=== PATIENT | female | born 1985 | race Caucasian/White ===

== ENCOUNTER 2023-04-10 11:18 | Observation (INO) | payer SELFPAY ==
[2023-04-10] MEDS ORDERED: SODIUM CHLORIDE 0.9% 500 ML 500 ML IV ONE (12:06)
[2023-04-10] MEDS ORDERED: SODIUM CHLORIDE 0.9% 1,000 ML IV ONE (12:06)
[2023-04-10 12:32] LABS: Basophils % (A) 1 %; Eosinophils # (A) 0.1 k/uL (0-0.7); Eosinophils % (A) 2 %; HCT 49.1 % (34.0-46.0); HGB 16.2 gm/dL (11.4-16.0); Lymphocytes # (A) 1.4 k/uL (1.0-4.8); Lymphocytes % (A) 32 %; MCH 32.6 pg (25.0-35.0); MCHC 33.1 g/dL (31.0-37.0); MCV 98.6 fL (80.0-100.0); Mean Platelet Volume 9.7; Monocytes # (A) 0.3 k/uL (0-1.0); Monocytes % (A) 8 %; Neutrophils # (A) 2.4 k/uL (1.3-7.7); Neutrophils % (A) 56 %; Platelet Count 192 k/uL (150-450); RBC 4.98 m/uL (3.80-5.40); RDW 13.4 % (11.5-15.5); WBC 4.4 k/uL (3.8-10.6)
[2023-04-10 12:39] LABS: ALT 382 U/L (4-34); AST 240 U/L (14-36); African American GFR (CKD) >90 (>60 ml/min/1.73 sqM); Albumin 4.7 g/dL (3.5-5.0); Alkaline Phosphatase 53 U/L (38-126); Anion Gap 14 mmol/L; Blood Urea Nitrogen 8 mg/dL (7-17); Calcium 9.2 mg/dL (8.4-10.2); Carbon Dioxide 26 mmol/L (22-30); Chloride 106 mmol/L (98-107); Glucose 84 mg/dL (74-99); Non-African American GFR(CKD) >90 (>60 ml/min/1.73 sqM); Potassium 4.2 mmol/L (3.5-5.1); Sodium 146 mmol/L (137-145); Total Bilirubin 1.4 mg/dL (0.2-1.3); Total Protein 8.1 g/dL (6.3-8.2)
[2023-04-10 12:53] LABS: Alcohol 314 mg/dL
[2023-04-10 13:08] LABS: Appearance,Urine Clear (Clear); Color,Urine Light Yellow
[2023-04-10] MEDS ORDERED: LORazepam 2 MG/ML INJ IV PRN (13:08)
[2023-04-10] MEDS ORDERED: LORazepam 1 MG TAB PO PRN (13:08)
[2023-04-10] MEDS ORDERED: LORazepam 0.5 MG TAB PO PRN (13:08)
[2023-04-10 13:09] LABS: Bilirubin,Urine Negative (Negative); Blood,Urine Trace (Negative); Glucose,Urine (UA) Negative (Negative); Ketones,Urine Negative (Negative); Leukocyte Esterase,Urine Negative (Negative); Nitrite,Urine Negative (Negative); Protein,Urine Negative (Negative); Urobilinogen,Urine 0.2 mg/dL (<2.0)
[2023-04-10 13:18] LABS: Bacteria,Urine Many /hpf; RBC,Urine 1 /hpf (0-5); Squamous Epithelial Cell,Urine 3 /hpf (0-4); WBC,Urine 2 /hpf (0-5)
[2023-04-10 13:19] LABS: Amphetamine Screen,Urine Not Detected (NotDetected); Barbiturate Screen,Urine Not Detected (NotDetected); Benzodiazepines Screen,Urine Not Detected (NotDetected); Cocaine Screen,Urine Not Detected (NotDetected); Methadone Screen, Urine Not Detected (NotDetected); Opiate Screen,Urine Not Detected (NotDetected); Oxycodone Screen, Urine Not Detected (NotDetected); Phencyclidine Screen,Urine Not Detected (NotDetected); Tricyclic Antidepressant,Urine Not Detected (NotDetected); Urn Cannabinoid Scrn Not Detected (NotDetected)
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
[2023-04-10] MEDS ORDERED: NALOXONE 0.4 MG/ML 1 ML VIAL IV PRN (13:26)
[2023-04-10] MEDS ORDERED: ONDANSETRON 4 MG/2 ML VIAL IVP PRN (13:26)
[2023-04-10] MEDS: LORazepam 1 MG TAB PO PRN (14:18)
[2023-04-10] MEDS: SODIUM CHLORIDE 0.9% 1,000 ML IV SCH (15:30)
--- NOTE | 2023-04-10 16:19 | P.HPIM ---
History of Present Illness This is a pleasant 37 years old female with past medical history of depression. Patient presents because of suicidal ideation, patient called Hotline for suicidal thoughts and attempts. On the way to the hospital she try to drop from the EMS vehicle. Patient states that she feels very depressed and she was not compliant with her medication, she called Hotline because she did not want to live anymore and actually should try to take her life by/in her left wrist and there is superficial abrasion several of them on her left wrist. She denies any specific symptoms of chest pain dyspnea no abdominal pain no right upper quadrant tenderness, no nausea vomiting or diarrhea. No urinary complaints. No headache weakness or numbness. Smoking or illicit drugs. She drinks 1 pint of liquor every day. Including today. Patient is hemodynamically stable Labs reviewed showing unremarkable CBC, BMP except for mild increased sodium 146 Liver enzymes elevated with AST 40, ALT 382 and total bilirubin 1.4. The emergency room patient was petitioned by her mother Review of Systems Review of systems CONSTITUTIONAL: No fever, no malaise, no fatigue. HEENT: No recent visual problems or hearing problems. Denied any sore throat. CARDIOVASCULAR: No orthopnea, PND, no palpitations, no syncope. PULMONARY: No shortness of breath, no cough, no hemoptysis. GASTROINTESTINAL: No diarrhea, no nausea, no vomiting, no abdominal pain. Normoactive bowel sounds. NEUROLOGICAL: No headaches, no weakness, no numbness. HEMATOLOGICAL: Denies any bleeding or petechiae. GENITOURINARY: Denies any burning micturition, frequency, or urgency. MUSCULOSKELETAL/RHEUMATOLOGICAL: Denies any joint pain, swelling, or any muscle pain. ENDOCRINE: Denies any polyuria or polydipsia. Past Medical History History of Any Multi-Drug Resistant Organisms: None Reported Past Psychological History: Anxiety, Depression Smoking Status: Former smoker Past Alcohol Use History: Daily, Heavy Past Drug Use History: None Reported Medications and Allergies Home Medications Medication Instructions Recorded Confirmed Type No Known Home Medications 04/10/23 04/10/23 History Allergies Allergy/AdvReac Type Severity Reaction Status Date / Time No Known Allergies Allergy Verified 04/10/23 15:05 Physical Exam Vitals: Vital Signs Temp Pulse Resp BP Pulse Ox 04/10/23 12:28 98.7 F 79 16 131/84 99 Intake and Output 04/09/23 04/10/2323 22:59 06:59 14:59 Other: Weight 75.296 kg GENERAL: The patient is alert and oriented x3, not in any acute distress. Well developed, well nourished. HEENT: Pupils are round and equally reacting to light. EOMI. No scleral icterus. No conjunctival pallor. Normocephalic, atraumatic. No pharyngeal erythema. No thyromegaly. CARDIOVASCULAR: S1 and S2 present. No murmurs, rubs, or gallops. PULMONARY: Chest is clear to auscultation, no wheezing , no crackles. ABDOMEN: Soft, nontender, nondistended, normoactive bowel sounds. No palpable organomegaly. MUSCULOSKELETAL: No joint swelling or deformity. -EXTREMITIES: No cyanosis, clubbing, or pedal edema. Superficial abrasion on her left wrist NEUROLOGICAL: Gross neurological examination did not reveal any focal deficits. SKIN: No rashes. no petechiae. Results CBC & Chem 7: 04/10/23 12:19 04/10/23 12:19 Labs: Abnormal Lab Results - Last 24 Hours (Table) 04/10/23 04/10/23 04/10/23 Range/Units 11:50 12:19 12:19 Hgb 16.2 H (11.4-16.0) gm/dL Hct 49.1 H (34.0-46.0) % Sodium 146 H (137-145) mmol/L Total Bilirubin 1.4 H (0.2-1.3) mg/dL AST 240 H (14-36) U/L ALT 382 H (4-34) U/L Urine Blood Trace H (Negative) Urine Bacteria Many H (None) /hpf Serum Alcohol 314 H* mg/dL Assessment and Plan Assessment: Severe depression with suicidal ideation and attempts Alcohol intoxication at-risk of alcohol withdrawal Transaminitis with mild increased bilirubin most likely secondary to alcohol effect Plan: Continue with CIWA protocol Suicidal precautions including sitter at bedside Psychiatry team consult Continue with gentle hydration Cert was written and placed in her paper chart Labs and medication were reviewed.. Continue same treatment. Continue with symptomatic treatment. Resume home medication. Monitor labs and vitals. DVT and GI prophylaxis. Further recommendations as per clinical course of the patient DVT prophylaxis: Subcutaneous heparin GI Prophylaxis: Pepcid Prognosis is guarded
[2023-04-10] MEDS: FAMOTIDINE 20 MG/2 ML VIAL IV SCH (21:39)
[2023-04-10] MEDS: HEPARIN SODIUM,PORCINE 5,000 UNIT/ML 1 ML VIAL SQ SCH (21:40)
[2023-04-11] MEDS: SODIUM CHLORIDE 0.9% 1,000 ML IV SCH ×2 (03:58→16:27)
[2023-04-11] MEDS: LORazepam 1 MG TAB PO PRN ×2 (07:56→17:30)
[2023-04-11] MEDS: HEPARIN SODIUM,PORCINE 5,000 UNIT/ML 1 ML VIAL SQ SCH ×2 (08:03→19:51)
[2023-04-11] MEDS: THIAMINE 100 MG TAB PO SCH (08:03)
[2023-04-11] MEDS: FAMOTIDINE 20 MG/2 ML VIAL IV SCH ×2 (08:03→19:50)
--- NOTE | 2023-04-11 11:46 | P.DS ---
Providers Date of admission: 04/10/23 13:18 Attending physician: Jv Argueta MD Consults: 04/10/23 13:26 Consult Physician Routine Consulting Provider: Dariel Mackenzie Consult Reason/Comments: Suicidal ideation, alcohol abuse, depression Do you want consulting provider notified?: Yes Primary care physician: Stated None Hospital Course: diagnoses: Severe depression with suicidal ideation and attempts Alcohol intoxication at-risk of alcohol withdrawal Transaminitis with mild increased bilirubin most likely secondary to alcohol effect Small superficial wound of the left wrist, no infection and healing hospital course: This is a pleasant 37 years old female with past medical history of depression. Patient presents because of suicidal ideation, patient called Hotline for suicidal thoughts and attempts. On the way to the hospital she try to drop from the EMS vehicle. Patient states that she feels very depressed and she was not compliant with her medication, she called Hotline because she did not want to live anymore and actually should try to take her life by/in her left wrist and there is superficial abrasion several of them on her left wrist. Liver enzymes elevated with AST 40, ALT 382 and total bilirubin 1.4. The emergency room patient was petitioned by her mother and cert is signed and placed in the paper chart Patient has been monitored for 24 hours, no signs symptoms of withdrawal. Today she is fully awake alert, calm. Denies any chest pain or dyspnea. No abdominal pain or change in bowel habits, no diarrhea vomiting. She tolerates diet. No urinary complaints. No headache dizziness weakness or numbness. Patient also feels she is ready to go to the psych unit. We going to repeat liver enzymes please keep monitoring Other that patient is medically stable Problems and management plan were discussed with the patient and he verbalized understanding and acceptance Patient was found stable and can be discharged home in guarded prognosis however he needs follow-up as an outpatient. Patient was instructed to follow up with PCP within one week and patient agrees. Patient states that she does not have insurance still April 2023 so information for [facility] for her Physical exam Gen: patient is a AAOx3, no distress CVS: S1-S2, RRR, no murmur Lungs: B/L CTA, no wheezing Abdomen: soft, no distention, no tenderness, positive bowel sounds Extremity: no leg edema or induration Time spent more than 35 minutes Patient Condition at Discharge: Fair Plan - Discharge Summary Discharge Rx Participant: Yes New Discharge Prescriptions: No Action No Known Home Medications Discharge Medication List No Known Home Medications 04/10/23 [History] Follow up Appointment(s)/Referral(s): None,Stated [Primary Care Provider] - 1-2 days [facility] [NON-STAFF] - 1 Week Discharge Disposition: TRANSFER TO PSYCH HOSP/UNIT
[2023-04-11 12:30] LABS: Albumin 3.8 g/dL (3.5-5.0); Albumin/Globulin Ratio 1.4; Bilirubin,Unconjugated 2.2 mg/dL (0.0-1.1); Globulin 2.7 g/dL; Total Bilirubin 2.4 mg/dL (0.2-1.3); Total Protein 6.5 g/dL (6.3-8.2)
[2023-04-11 18:36] VITALS: RESP 19
[2023-04-12] MEDS: LORazepam 1 MG TAB PO PRN ×3 (01:03→13:20)
[2023-04-12] MEDS: SODIUM CHLORIDE 0.9% 1,000 ML IV SCH (05:02)
[2023-04-12] MEDS: THIAMINE 100 MG TAB PO SCH (07:44)
[2023-04-12] MEDS: HEPARIN SODIUM,PORCINE 5,000 UNIT/ML 1 ML VIAL SQ SCH (07:44)
[2023-04-12] MEDS: FAMOTIDINE 20 MG/2 ML VIAL IV SCH (07:44)
[2023-04-12 13:27] VITALS: BP 100/64; PULSE 80; TEMP 98.5
--- NOTE | 2023-04-12 15:51 | P.DS ---
Providers Date of admission: 04/10/23 13:18 Expected date of discharge: 04/12/23 Attending physician: Jv Argueta MD Consults: 04/10/23 13:26 Consult Physician Routine Consulting Provider: Dariel Mackenzie Consult Reason/Comments: Suicidal ideation, alcohol abuse, depression Do you want consulting provider notified?: Yes Primary care physician: Stated None Hospital Course: Final diagnoses Severe depression with suicidal ideation and attempts Alcohol intoxication at-risk of alcohol withdrawal maintained on CIWA protocol Transaminitis with mild increased bilirubin most likely secondary to alcohol effect Small superficial wound of the left wrist, no infection and healing History of anxiety with depression Former smoker Daily alcohol use of at least 1-2 times daily of vodka GI prophylaxis Full code hospital course: This is a pleasant 37 years old female with past medical history of depression. Patient presents because of suicidal ideation, patient called Hotline for suicidal thoughts and attempts. On the way to the hospital she try to drop from the EMS vehicle. Patient states that she feels very depressed and she was not compliant with her medication, she called Hotline because she did not want to live anymore and actually should try to take her life by/in her left wrist and there is superficial abrasion several of them on her left wrist. Liver enzymes elevated with AST 40, ALT 382 and total bilirubin 1.4. The emergency room patient was petitioned by her mother and cert is signed and placed in the paper chart Patient has been monitored for 24 hours, no signs symptoms of withdrawal. Today she is fully awake alert, calm. Denies any chest pain or dyspnea. No abdominal pain or change in bowel habits, no diarrhea vomiting. She tolerates diet. No urinary complaints. No headache dizziness weakness or numbness. Patient also feels she is ready to go to the psych unit. Patient will be going to [address] once there is about available. Physical exam: Gen: patient is a AAOx3, no distress, anxious CVS: S1-S2, RRR, no murmur Lungs: B/L CTA, no wheezing Abdomen: soft, no distention, no tenderness, positive bowel sounds Extremity: no leg edema or induration The impression and plan of care has been dictated by Yuliet Garcia, Nurse Practitioner as directed. Dr. Mario MD I have performed a history and examination and MDM of this patient, discussed the same with the dictator, and agree with the dictator's assessment and plan as written ,documented as a scribe. Based on total visit time, I have performed more than 50% of the visit. Patient Condition at Discharge: Fair Plan - Discharge Summary Discharge Rx Participant: Yes New Discharge Prescriptions: New LORazepam [Ativan] 0.5 mg PO Q4HR PRN tab PRN Reason: Ciwa 4 To 5 LORazepam [Ativan] 2 mg PO Q2HR PRN tab PRN Reason: Ciwa 10 or greater LORazepam [Ativan] 2 mg PO Q3HR PRN tab PRN Reason: Ciwa 8 To 9 Thiamine [Vitamin B-1] 100 mg PO DAILY tab LORazepam [Ativan] 1 mg PO Q4HR PRN tab PRN Reason: Ciwa 6 To 7 Discharge Medication List LORazepam [Ativan] 0.5 mg PO Q4HR PRN tab 04/11/23 [Rx] LORazepam [Ativan] 1 mg PO Q4HR PRN tab 04/11/23 [Rx] LORazepam [Ativan] 2 mg PO Q2HR PRN tab 04/11/23 [Rx] LORazepam [Ativan] 2 mg PO Q3HR PRN tab 04/11/23 [Rx] Thiamine [Vitamin B-1] 100 mg PO DAILY tab 04/11/23 [Rx] Follow up Appointment(s)/Referral(s): None,Stated [Primary Care Provider] - 1-2 days [facility] [[facility] - 1 Week Activity/Diet/Wound Care/Special Instructions: discharge pt to community hospital (psych unit) Patient is medically stable to go to 3 . Discharge Disposition: TRANSFER TO PSYCH HOSP/UNIT
--- NOTE | 2023-04-12 16:04 | P.CN ---
Psychiatric Consult - . 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 REASON FOR REFERRAL: Psychiatry was consulted for suicidal ideations, depression, alcohol abuse HISTORY OF PRESENT ILLNESS: The patient presented to the hospital initially on 04/10 complaining of suicidal ideation depression alcohol intoxication. Patient reported that she was drinking heavily prior to coming to hospital. She apparently cut her left wrist, she has a history of cutting as well. Blood alcohol level was 314 on admission. LFTs were significantly elevated however mildly to hospitalization. Patient was petitioned by her mother. Patient was seen today at the bedside and agreeable to sba underwriter. Patient claims that she was off her medications for several months. She states that she moved back to [place] from [place] with her family a couple of months ago and states that she has become more "emotional". She states that it was her and her 's anniversary recently and states that "my didn't come home" and states that she believes that she may have been cheating on her. Claims that she started drinking fairly heavily for the past few days. Claims that she went into a "manic episode". She states that she has been having significant marital problems, states that her is possibly leaving her. She was fairly tearful and endorsing depression and anxiety. States that her sleep has been very poor lately. Denying any current alcohol withdrawal symptoms. States that she called the suicide hotline and states that her mother and the police showed up at her door to bring her to the hospital. At this time patient denies any current suicidal or homical ideations, intent or plan. Patient denies any audito ry, visual hallucinations and denies any paranoia or delusions. Patients admits to using alcohol, unknown amount daily. States that she's been struggling with alcohol use for several years now and has been on and off. States that she went to rehab once in [place]. Claims that she takes little bites of irritable at nighttime to help her with sleep. States that she does smoke cigarettes. PAST PSYCHIATRIC HISTORY: Patient has a a history of bipolar disorder. She states that she was previously on lithium, BuSpar and also vrayklar however has not been compliant with these medications for the past few months. Patient denies any previous psychiatric hospitalizations. She claims that she does not have a psychiatrist in [place] however was following up with a psychiatrist in [place] before she moved. Claims that she overdosed on pills as a suicide attempt about 4 years ago. History of Any Multi-Drug Resistant Organisms: None Reported Past Psychological History: Anxiety, Depression Smoking Status: Former smoker Past Alcohol Use History: Daily, Heavy Past Drug Use History: None Reported ALLERGIES: as per EMR. CHEMICAL DEPENDENCY HISTORY: as per HPI. FAMILY PSYCHIATRIC/SUBSTANCE USE HISTORY: Claims that her biological mother abused substances. SOCIAL HISTORY: Patient was born and raised in [place] and also in [place]. Claims that she completed high school and a bachelor's degree. She states that she was arrested a couple of years ago for domestic violence and also resisting arrest. 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 MENTAL STATUS EXAM: General Appearance: Patient appears to be tearful stated age is alert, attempts to be cooperative. Patient appears to have fair hygiene and grooming wearing hospital gown with poor eye contact. Behavior: Patient is calmly lying in bed without any agitated behavior. Soft tone Speech: Patient's speech is fluent and nonpressured. Hesitant Mood/Affect: Patient reports their mood is "depressed and anxiety", affect is congruent and tearful Suicidality/Homicidality: Patient denies having any suicidal or homicidal ideation intent or plan. Perceptions: Patient denies any visual hallucinations and denies any auditory hallucinations Though content/process: There is no evidence of any delusional thought content and thought process is linear and goal-directed. Evasive. Memory and concentration: AOX3, grossly intact for the purposes of this session. Can spell "WORLD" backwards Judgment and insight: poor IMPRESSIONS: Bipolar disorder, current episode depressed Alcohol use disorder Nicotine dependence Marital problems PLAN: -At this time patient DOES meet criteria for inpatient psychiatric admission. -Would recommend the following medication changes/additions: We'll hold off on mood stabilizing medications and antidepressants until patient is transferred to the mental health unit. Will start Librium 20 mg 3 times a day scheduled for alcohol withdrawal and plan to taper down. -CIWA protocol with PRN Ativan for alcohol withdrawal. Continue to monitor vital signs. -Continue 1:1 sitter for safety until patient is safely admitted to the mental health unit -Cannot leave AMA at this time. Patient will need a petition and certification if attempting to leave AMA. -Comb Tender spoke with patient about substance abuse and the harmful effects on medical and mental health, patient verbally understood and agreed. -When medically stable, patient is eligible for transfer to a psych bed when available. -Communicated plan to patient's nurse -Psychiatry will sign off at this time -Please contact with any questions. 04/12/23 15:58
[2023-04-12] MEDS ORDERED: LORazepam 1 MG TAB PO PRN (16:05)
[2023-04-12] MEDS ORDERED: traZODone HCL 50 MG TAB PO PRN (16:06)
== END 2023-04-12 18:35 ==
LOC: EC 11:18 → 4SSUR 13:18
PROVIDERS: ADMIT Internal Medicine; ATTEND Internal Medicine
DX: R45.851 Suicidal ideations (principal); F10.229 Alcohol dependence with intoxication, unspecified; R74.01 Elevation of levels of liver transaminase levels; F31.30 Bipolar disorder, current episode depressed, mild or moderate severity, unspecified; S60.812A Abrasion of left wrist, initial encounter; X78.9XXA Intentional self-harm by unspecified sharp object, initial encounter; F41.9 Anxiety disorder, unspecified; F17.210 Nicotine dependence, cigarettes, uncomplicated; Y90.8 Blood alcohol level of 240 mg/100 ml or more; Z20.822 Contact with and (suspected) exposure to COVID-19; Z63.0 Problems in relationship with spouse or partner; Z91.51 Personal history of suicidal behavior
CPT/HCPCS: 96372 ×2; 82075; 99285; 36415; 80053; 80076; 85025; 81001; 84703; 80306; 80320; 87635; G0378 ×3; J1644 ×2

== ENCOUNTER 2023-04-12 17:27 | Inpatient (IN) | payer OTHER ==
[2023-04-12] MEDS ORDERED: LORazepam 1 MG TAB PO PRN (17:53)
[2023-04-12] MEDS ORDERED: MAGNESIUM HYDROXIDE 2,400 MG/30 ML CUP PO PRN (17:53)
[2023-04-12] MEDS ORDERED: OLANZapine 5 MG TAB PO PRN (18:00)
[2023-04-12] MEDS ORDERED: OLANZapine 10 MG VIAL IM PRN (18:02)
[2023-04-12] MEDS: traZODone HCL 50 MG TAB PO PRN (20:39)
[2023-04-13] MEDS: NICOTINE 14MG/24HR PATCH TRANSDERM SCH (08:13)
[2023-04-13] MEDS: THIAMINE 100 MG TAB PO SCH (08:13)
[2023-04-13] MEDS ORDERED: THIAMINE 100 MG TAB PO SCH (09:00)
[2023-04-13] MEDS ORDERED: INFLUENZA VACC (6 MOS-64 YRS) 60 MCG/0.5 ML SYRINGE IM ONE (10:00)
[2023-04-13] MEDS ORDERED: PNEUMOCOCCAL VACC-PREVNAR-20 0.5 ML SYR IM ONE (10:00)
--- NOTE | 2023-04-13 11:58 | P.HP ---
Psychiatric H&P - . H&P Date: 04/13/23 History & Physical: Allergies Allergy/AdvReac Type Severity Reaction Status Date / Time No Known Allergies Allergy Verified 04/12/23 17:42 Vital Signs Temp 98.2 F 04/13/23 07:10 Pulse 72 04/13/23 07:10 Resp 16 04/13/23 07:10 BP 118/58 04/13/23 07:10 Pulse Ox 98 04/12/23 18:44 FiO2 Intake & Output 04/12/23 04/13/23 04/13/23 18:59 06:59 18:59 Weight 75.29 kg Laboratory Last Values Estimated Ave Glu mg/dL 114 mg/dL 04/13/23 06:29 Hemoglobin A1c 5.6 % (<=6.0) 04/13/23 06:29 TSH 2.330 mIU/L (0.465-4.680) 04/13/23 06:29 04/13/23 08:53 HISTORY OF PRESENT ILLNESS: The patient presented to the hospital initially on 04/10 complaining of suicidal ideation depression alcohol intoxication. Patient reported that she was drinking heavily prior to coming to hospital. She apparently cut her left wrist, she has a history of cutting as well. Blood alcohol level was 314 on admission. LFTs were significantly elevated however mildly to hospitalization. Patient was petitioned by her mother. Patient was seen today at the bedside and agreeable to health science writer. Patient claims that she was off her medications for several months. She states that she moved back to [place] from [place] with her family a couple of months ago and states that she has become more "emotional". She states that it was her and her 's anniversary recently and states that "my didn't come home" and states that she believes that she may have been cheating on her. Claims that she started drinking fairly heavily for the past few days. Claims that she went into a "manic episode". She states that she has been having significant marital problems, states that her is possibly leaving her. She was fairly tearful and endorsing depression and anxiety. States that her sleep has been very poor lately. Denying any current alcohol withdrawal symptoms. States that she called the suicide hotline and states that her mother and the police showed up at her door to bring her to the hospital. At this time patient denies any current suicidal or homical ideations, intent or plan. Patient denies any auditory, visual hallucinations and denies any paranoia or delusions. Patients admits to using alcohol, unknown amount daily. States that she's been struggling with alcohol use for several years now and has been on and off. States that she went to rehab once in [place]. Claims that she takes little bites of an edible at nighttime to help her with sleep. States that she does smoke cigarettes. According to petition filed by her mother "Dennise made statements of suicide, stated she has 30 different ways to kill herself. Cut herself with a knife on wrist, drinking heavily, found bloody knife in her bed. No sleep in 2 days, hasn't changed clothes/showered. Dennise stated she is hopeless, no reason to live. Marriage is dissolving, and children staying with 's parents. History of overdose and hospitalization. Patient transferred from medical unit to [facility] last night. Upon today's interview, Patient states her sleep last night was pretty good, she was restless, however, was able to fall asleep with the help of trazadone. She states her mood and anxiety are not well, and realizes she needs to be put back on her meds. Patient states her appetite is poor, but she is trying to eat. she was fairly tearful when speaking about her condition and hospitalization. states she misses her family. Counseled patient on different medication options that will help her, patient agreeable to take medication. Patient agreeable to sign in voluntary and agrees with her need for treatment. PAST PSYCHIATRIC HISTORY: Patient has a a history of bipolar disorder. She states that she was previously on lithium, BuSpar and also vraylar however has not been compliant with these medications for the past few months. Patient denies any previous psychiatric hospitalizations. She claims that she does not have a psychiatrist in [place] however was following up with a psychiatrist in [place] before she moved. Claims that she overdosed on pills as a suicide attempt about 4 years ago. History of Any Multi-Drug Resistant Organisms: None Reported Past Psychological History: Anxiety, Depression Smoking Status: Former smoker Past Alcohol Use History: Daily, Heavy Past Drug Use History: None Reported ALLERGIES: as per EMR. CHEMICAL DEPENDENCY HISTORY: as per HPI. FAMILY PSYCHIATRIC/SUBSTANCE USE HISTORY: Claims that her biological mother abused substances. SOCIAL HISTORY: Patient was born and raised in [place] and also in [place]. Claims that she completed high school and a bachelor's degree. She states that she was arrested a couple of years ago for domestic violence and also resisting arrest. 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 MENTAL STATUS EXAM: General Appearance: Patient appears to be tearful stated age is alert, attempts to be cooperative. Patient appears to have fair hygiene and grooming wearing street clothes with improving eye contact. Behavior: Patient is calmly sitting in chair without any agitated behavior. Soft tone, tearful Speech: Patient's speech is fluent and nonpressured. Hesitant Mood/Affect: Patient reports their mood is "depressed and anxiety", affect is congruent Suicidality/Homicidality: Patient denies having any suicidal or homicidal ideation intent or plan. Perceptions: Patient denies any visual hallucinations and denies any auditory hallucinations Though content/process: There is no evidence of any delusional thought content and thought process is linear and goal-directed. Memory and concentration: AOX3, grossly intact for the purposes of this session. Can spell "WORLD" backwards Judgment and insight: poor, mildly improving STRENGTHS/WEAKNESSES: strength is that patient is resilient. Weakness is that patient has poor judgment and is impulsive INTELLECT: average IMPRESSIONS: Bipolar disorder, current episode depressed Alcohol use disorder Nicotine dependence Marital problems PLAN: -Patient is admitted under voluntary status to MHU for stabilization of psychiatric symptoms and safety. Patient has signed adult voluntary form and medication consent and is placed in patient's chart. -Medications : Will start patient on Lamictal 25mg po bid for mood stabilization/depression. Counseled patient to watch for a rash, and to notify nursing staff if she notices anything abnormal. Buspar 15mg po bid, Cymbalta 20mg qd for mood/anxiety. trazadone 50mg qhs prn for sleep/anxiety -Ativan and Haldol PRN for agitation/aggression. -Patient was informed of the risks, benefits and side effects of the medication and patient verbally consented to taking the medications. Patient signed med consent form and was placed in chart. -Internal Medicine consult to perform medical evaluation and physical. -NRT - nicotine patch -SW on board for discharge planning. Encourage patient to participate in groups to work on coping skills.
[2023-04-13] MEDS: busPIRone HCl 5 MG TAB PO SCH ×2 (12:34→21:27)
[2023-04-13] MEDS: DULoxetine HCL 20 MG CAPSULE.DR PO SCH (12:34)
[2023-04-13] MEDS: lamoTRIgine 25 MG TAB PO SCH ×2 (12:34→21:27)
[2023-04-13 19:00] LABS: Chol/HDL Ratio 2.83 Ratio; LDL Cholesterol,Calculated 102.4 mg/dL (0.0-131.0); VLDL Calculation 15.36 mg/dL (5.00-40.00)
--- NOTE | 2023-04-13 19:24 | P.MDCNMH ---
History of Present Illness H&P Date: 04/13/23 This is a 37-year-old female who initially presented to the emergency department with suicidal ideation and was intoxicated and admitted to the medical floor for EtOH withdrawal and maintained on CIWA protocol. Psychiatry was consulted as patient reports has not been on medication since August and has no primary care provider. Patient is originally from [place] and has been off her medications. Patient per her spouse has been excessively drinking at least 1-2 pints of liquor per day and has been increasingly depressed and experiencing extreme anxiety. Patient was maintained on suicidal precautions with sitter present. Patient discussed further with psychiatry about voluntarily being adm itted to [facility] for further psychiatric care. Review Of Systems: Constitutional: No fever, no chills, no night sweats. No weight change. No weakness, fatigue or lethargy. No daytime sleepiness. EENT: No headache. No blurred vision or double vision, no loss of vision. No loss of Hearing, no ringing in the ears, no dizziness. No nasal drainage or congestion. No epistaxis. No sore throat. Lungs: No shortness of breath, cough, no sputum production. No wheezing. Cardiovascular: No chest pain, no lower extremity edema. No palpitations. No paroxysmal nocturnal dyspnea. No orthopnea. No lightheadedness or dizziness. No syncopal episodes. Abdominal: No abdominal pain. No nausea, vomiting. No diarrhea. No constipation. No bloody or tarry stools.. No loss of appetite. Genitourinary: No dysuria, increased frequency, urgency. No urinary retention. Musculoskeletal: No myalgias. No muscle weakness, no gait dysfunction, no frequent falls. No back pain. No neck pain. Integumentary: No wounds, no lesions. No rash or pruritus. No unusual bruising. No change in hair or nails. Neurologic: No aphasia. No facial droop. No change in mentation. No head injury. No headache. No paralysis. No paresthesia. Psychiatric: Reports increased depression. Reports increased anxiety. No mood swings. Reports thoughts of suicidal ideation. Endocrine: No abnormal blood sugars. No weight change. No excessive sweating or thirst. No cold intolerance. PHYSICAL EXAMINATION: GENERAL: The patient is alert and oriented x4, Well developed, well nourished. HEENT: Pupils are round and equally reacting to light. EOMI. no scleral icterus. No conjunctival pallor. Normocephalic, atraumatic. No pharyngeal erythema. No thyromegaly. CARDIOVASCULAR: S1 and S2 muffled PULMONARY: diminished breath sounds bilaterally with no wheezing or rhonchi noted. ABDOMEN: soft. Nontender on exam. obese. non-distended, normoactive bowel sounds. No palpable organomegaly. MUSCULOSKELETAL: No joint swelling or deformity. EXTREMITIES: No cyanosis, clubbing, or pedal edema. NEUROLOGICAL: Gross neurological examination did not reveal any focal deficits. SKIN: No rashes. Assessment: Severe depression with suicidal ideation and attempt Alcohol intoxication , present on admission Transaminitis with mild increased bilirubin most likely secondary to alcohol effect, trending down Small superficial wound of the left wrist, no infection and healing History of anxiety with depression Former smoker Daily alcohol use of at least 1-2 pints daily of vodka Full code Plan: Recommend to continue with current medications and management per psychiatry Patient was seen and evaluated by psychiatrist while on the medical floor with acute alcohol withdrawal recommending inpatient psychiatric admission for further psychiatric care and medication adjustments including reinitiating depression medications and patient is agreeable and voluntarily admitted to [facility]. Patient encouraged to attend group therapy sessions and be compliant with medications Patient is not actively withdrawing Awaiting to speak further with case management about discharge planninig. Patient will need to establish with a primary care provider in the [facility] area The impression and plan of care has been dictated by Yuliet Garcia, nurse practitioner as directed. Dr. Mario MD I have performed a history and examination and MDM of this patient, discussed the same with the dictator, and agree with the dictator's assessment and plan as written ,documented as a scribe. Based on total visit time, I have performed more than 50% of the visit. Any additional findings or plans will be noted. Past Medical History Past Medical History: No Reported History History of Any Multi-Drug Resistant Organisms: None Reported Past Surgical History: No Surgical Hx Reported Past Anesthesia/Blood Transfusion Reactions: No Reported Reaction Past Psychological History: No Psychological Hx Reported, Anxiety, Depression Smoking Status: Never smoker Past Alcohol Use History: Daily, Heavy Past Drug Use History: None Reported Medications and Allergies Home Medications Medication Instructions Recorded Confirmed Type No Known Home Medications 04/12/23 04/12/23 History Allergies Allergy/AdvReac Type Severity Reaction Status Date / Time No Known Allergies Allergy Verified 04/12/23 17:42 Physical Exam Vitals: Vital Signs Temp Pulse Resp BP Pulse Ox 04/13/23 07:10 98.2 F 72 16 118/58 04/12/23 18:44 97.6 F 134 H 16 134/83 98 04/12/23 18:30 97.6 F 115 H 16 134/83 98 Intake and Output 04/12/23 04/13/23 04/13/23 22:59 06:59 14:59 Other: Weight 75.29 kg Cranial Nerve Examination - Cranial Nerves Cranial Nerve I- Olfactory: Intact Cranial Nerve II- Optic: Intact Cranial Nerve III- Oculomotor: Intact Cranial Nerve IV- Trochlear: Intact Cranial Nerve V- Trigeminal: Intact Cranial Nerve - Abducens: Intact Cranial Nerve VII- Facial: Intact Cranial Nerve VIII- Auditory: Intact Cranial Nerve IX- Glossopharyngeal: Intact Cranial Nerve X- Vagus: Intact Cranial Nerve XI- Accessory: Intact Cranial Nerve XII- Hypoglossal: Intact Assessment and Plan Time with Patient: Less than 30
[2023-04-13] MEDS: traZODone HCL 50 MG TAB PO PRN (21:30)
[2023-04-14] MEDS: busPIRone HCl 5 MG TAB PO SCH ×2 (08:37→20:40)
[2023-04-14] MEDS: DULoxetine HCL 20 MG CAPSULE.DR PO SCH (08:38)
[2023-04-14] MEDS: THIAMINE 100 MG TAB PO SCH (08:38)
[2023-04-14] MEDS: lamoTRIgine 25 MG TAB PO SCH ×3 (08:38→20:40)
[2023-04-14] MEDS: NICOTINE 14MG/24HR PATCH TRANSDERM SCH (08:38)
--- NOTE | 2023-04-14 11:40 | P.PN ---
Progress Note - Text Progress Note Date: 04/14/23 Interval history: Patient was seen sitting in her bed in her room reading a book and was direct able and agreeable to speak with typewriter repairer. Patient states she is continuing to feel anxious and depressed. Claims that she still having withdrawal symptoms. She claims that her withdrawal symptoms are worse at nighttime. She was tachycardic yesterday significantly. States that she had a difficult time sleeping last night and trazodone did not help. She claims that she also feels restless after taking it. We spoke about other medication options for sleep she was agreeable to try doxepin for today. She states that she was tolerating the Lamictal fairly well at this time, denying any rashes. States that her appetite is mildly improving. At this time patient denies any suicidal or homicidal ideations intent or plan. Denies any Auditory or visual hallucinations. Patient denies any side effects from the medications and has been compliant with meds. Mental status exam: General Appearance: Patient appears to be tearful stated age is alert, attempts to be cooperative. Patient appears to have fair hygiene and grooming wearing street clothes with improving eye contact. Behavior: Patient is calmly sitting in chair without any agitated behavior. Soft tone, less tearful Speech: Patient's speech is fluent and nonpressured. Hesitant Mood/Affect: Patient reports their mood is "about the same", affect is congruent Suicidality/Homicidality: Patient denies having any suicidal or homicidal ideation intent or plan. Perceptions: Patient denies any visual hallucinations and denies any auditory hallucinations Though content/process: There is no evidence of any delusional thought content and thought process is linear and goal-directed. Focus on her symptoms Memory and concentration: AOX3, grossly intact for the purposes of this session. Can spell "WORLD" backwards Judgment and insight: poor, mildly improving IMPRESSIONS: Bipolar disorder, current episode depressed Alcohol use disorder Nicotine dependence Marital problems PLAN: -Patient is admitted under voluntary status to MHU for stabilization of psychiatric symptoms and safety. Patient has signed adult voluntary form and medication consent and is placed in patient's chart. -Medications : Increase Lamictal 25mg po tid for mood stabilization/depression. Counseled patient to watch for a rash, and to notify nursing staff if she notices anything abnormal. Buspar 15mg po bid, increase Cymbalta 30mg qd for mood/anxiety. d/c trazadone and replace with doxepin 10 mg qhs for sleep/mood. -Ativan and Haldol PRN for agitation/aggression. -ciwa protocol with prn ativan. -NRT - nicotine patch -SW on board for discharge planning. Encourage patient to participate in groups to work on coping skills.
[2023-04-14] MEDS: chlordiazePOXIDE 25 MG CAP PO SCH ×2 (16:11→22:38)
[2023-04-14] MEDS: DOXEPIN 10 MG CAP PO SCH (22:36)
[2023-04-15] MEDS: DULoxetine HCL 30 MG CAPSULE.DR PO SCH (08:30)
[2023-04-15] MEDS: lamoTRIgine 25 MG TAB PO SCH ×3 (08:30→20:47)
[2023-04-15] MEDS: THIAMINE 100 MG TAB PO SCH (08:30)
[2023-04-15] MEDS: busPIRone HCl 5 MG TAB PO SCH ×2 (08:30→20:48)
[2023-04-15] MEDS: chlordiazePOXIDE 25 MG CAP PO SCH (08:30)
--- NOTE | 2023-04-15 11:45 | P.PN ---
Progress Note - Text Progress Note Date: 04/15/23 Interval history: Patient was seen wandering the hallways today and was directable and agreeable to speak with medical technical writer. Patient states that she is doing a bit better today with regards to her mood and anxiety. States that she feels "more stabilized". Claims that she was able to sleep a little better last night with doxepin. She was fairly concrete today, more demanding and focused on discharge. She today was minimizing her need for hospitalization. The medical technical writer attempted to explain prolonged withdrawal symptoms and the need to cut back on her medication slowly, patient was fairly focused on leaving the hospital. States that she is not welcome back home and will be likely staying with her mother. She has denying any rashes. States that her appetite is mildly improving. At this time patient denies any suicidal or homicidal ideations intent or plan. Denies any Auditory or visual hallucinations. Patient denies any side effects from the medications and has been compliant with meds. Mental status exam: General Appearance: Patient appears to be tearful stated age is alert, attempts to be cooperative. Patient appears to have fair hygiene and grooming wearing street clothes with improving eye contact. Behavior: Patient is calmly sitting in chair without any agitated behavior. Soft tone, not tearful Speech: Patient's speech is fluent and nonpressured. Mood/Affect: Patient reports their mood is " a bit better", affect is congruent and constricted Suicidality/Homicidality: Patient denies having any suicidal or homicidal ideation intent or plan. Perceptions: Patient denies any visual hallucinations and denies any auditory hallucinations Though content/process: There is no evidence of any delusional thought content and thought process is linear and goal-directed. Focus on her symptoms Memory and concentration: AOX3, grossly intact for the purposes of this session Judgment and insight: poor, mildly improving IMPRESSIONS: Bipolar disorder, current episode depressed Alcohol use disorder Nicotine dependence Marital problems PLAN: -Patient is admitted under voluntary status to [facility]HU for stabilization of psychiatric symptoms and safety. Patient has signed adult voluntary form and medication consent and is placed in patient's chart. -Medications : Lamictal 25mg po tid for mood stabilization/depression. Counseled patient to watch for a rash, and to notify nursing staff if she notices anything abnormal. Buspar 15mg po bid, Cymbalta 30mg qd for mood/anxiety. doxepin 10 mg qhs for sleep/mood. decreased librium 20 mg tid for etoh withdrawal. -Ativan and Haldol PRN for agitation/aggression. -ciwa protocol with prn ativan. -NRT - nicotine patch -SW on board for discharge planning. Encourage patient to participate in groups to work on coping skills.
[2023-04-15] MEDS: DOXEPIN 10 MG CAP PO SCH (23:37)
[2023-04-16] MEDS: DULoxetine HCL 30 MG CAPSULE.DR PO SCH (09:15)
[2023-04-16] MEDS: lamoTRIgine 25 MG TAB PO SCH ×2 (09:15→21:01)
[2023-04-16] MEDS: THIAMINE 100 MG TAB PO SCH (09:15)
[2023-04-16] MEDS: busPIRone HCl 5 MG TAB PO SCH ×2 (09:15→21:01)
--- NOTE | 2023-04-16 11:20 | P.PN ---
Progress Note - Text Progress Note Date: 04/16/23 Interval history: Patient was seen wandering the hallways today and was directable and agreeable to speak with investment underwriter. Patient states that she is doing pretty good with her mood and anxiety. States that she feels "more stabilized". patient stated she did not take her librium today, investment underwriter attempted to explain prolonged withdrawal symptoms and the need to cut back on her medication slowly, patient agreeablel. She has denying any rashes. States that her appetite is improving, and she sle pt well last night. At this time patient denies any suicidal or homicidal ideations intent or plan. Denies any Auditory or visual hallucinations. Patient denies any side effects from the medications and has been compliant with meds. Mental status exam: General Appearance: Patient appears to be tearful stated age is alert, attempts to be cooperative. Patient appears to have fair hygiene and grooming wearing street clothes with improving eye contact. Behavior: Patient is calmly sitting in chair without any agitated behavior. Soft tone Speech: Patient's speech is fluent and nonpressured. Mood/Affect: Patient reports their mood is "better", affect is congruent and constricted mildly improving Suicidality/Homicidality: Patient denies having any suicidal or homicidal ideation intent or plan. Perceptions: Patient denies any visual hallucinations and denies any auditory hallucinations Though content/process: There is no evidence of any delusional thought content and thought process is linear and goal-directed. focused on discharge Memory and concentration: AOX3, grossly intact for the purposes of this session Judgment and insight: poor, improving IMPRESSIONS: Bipolar disorder, current episode depressed Alcohol use disorder Nicotine dependence Marital problems PLAN: -Patient is admitted under voluntary status to [facility]HU for stabilization of psychiatric symptoms and safety. Patient has signed adult voluntary form and medication consent and is placed in patient's chart. -Medications :increase Lamictal 50mg po bid for mood stabilization/depression. Counseled patient to watch for a rash, and to notify nursing staff if she notices anything abnormal. Buspar 15mg po bid, Cymbalta 30mg qd for mood/anxiety. doxepin 10 mg qhs for sleep/mood. decreased librium 10 mg scheduled tid for etoh withdrawal. -Ativan and Haldol PRN for agitation/aggression. -ciwa protocol with prn ativan. -NRT - nicotine patch -SW on board for discharge planning. Encourage patient to participate in groups to work on coping skills. Likely discharge Sunday if patient continues to improve psychiatrically
[2023-04-16] MEDS ORDERED: SENNOSIDES 8.6 MG TAB PO PRN (14:05)
[2023-04-16] MEDS: DOXEPIN 10 MG CAP PO SCH (22:28)
[2023-04-17 05:31] VITALS: BP 114/60; PULSE 81; RESP 13; TEMP 97.3
[2023-04-17] MEDS: busPIRone HCl 5 MG TAB PO SCH (08:33)
[2023-04-17] MEDS: THIAMINE 100 MG TAB PO SCH (08:33)
[2023-04-17] MEDS: lamoTRIgine 25 MG TAB PO SCH (08:33)
[2023-04-17] MEDS: DULoxetine HCL 30 MG CAPSULE.DR PO SCH (08:33)
--- NOTE | 2023-04-17 11:26 | P.DS ---
Providers Date of admission: 04/12/23 17:31 Expected date of discharge: 04/17/23 Attending physician: Dariel Mackenzie MD Consults: 04/12/23 17:53 Consult Physician Routine Consulting Provider: Jv Argueta Consult Reason/Comments: H&P for mental health admission Do you want consulting provider notified?: Yes Primary care physician: Stated None - Discharge Diagnosis(es) (1) Bipolar disorder current episode depressed Current Visit: Yes Status: Acute Priority: High (2) Alcohol use disorder Current Visit: Yes Status: Acute Priority: High (3) Nicotine dependence Current Visit: Yes Status: Acute Priority: Low Hospital Course: Admission HPI: Admission note was completed by telegraphic typewriter installer "The patient presented to the hospital initially on 04/10 complaining of suicidal ideation depression alcohol intoxication. Patient reported that she was drinking heavily prior to coming to hospital. She apparently cut her left wrist, she has a history of cutting as well. Blood alcohol level was 314 on admission. LFTs were significantly elevated however mildly to hospitalization. Patient was petitioned by her mother. Patient was seen today at the bedside and agreeable to telegraphic typewriter installer. Patient claims that she was off her medications for several months. She states that she moved back to [place] from [place] with her family a couple of months ago and states that she has become more "emotional". She states that it was her and her 's anniversary recently and states that "my didn't come home" and states that she believes that she may have been cheating on her. Claims that she started drinking fairly heavily for the past few days. Claims that she went into a "manic episode". She states that she has been having significant marital problems, states that her is possibly leaving her. She was fairly tearful and endorsing depression and anxiety. States that her sleep has been very poor lately. Denying any current alcohol withdrawal symptoms. States that she called the suicide hotline and states that her mother and the police showed up at her door to bring her to the hospital. At this time patient denies any current suicidal or homical ideations, intent or plan. Patient denies any auditory, visual hallucinations and denies any paranoia or delusions. Patients admits to using alcohol, unknown amount daily. States that she's been struggling with alcohol use for several years now and has been on and off. States that she went to rehab once in [place]. Claims that she takes little bites of an edible at nighttime to help her with sleep. States that she does smoke cigarettes. According to petition filed by her mother "Dennise made statements of suicide, st ated she has 30 different ways to kill herself. Cut herself with a knife on wrist, drinking heavily, found bloody knife in her bed. No sleep in 2 days, hasn't changed clothes/showered. Dennise stated she is hopeless, no reason to live. Marriage is dissolving, and children staying with 's parents. History of overdose and hospitalization. Patient transferred from medical unit to [facility] last night. Upon today's interview, Patient states her sleep last night was pretty good, she was restless, however, was able to fall asleep with the help of trazadone. She states her mood and anxiety are not well, and realizes she needs to be put back on her meds. Patient states her appetite is poor, but she is trying to eat. she was fairly tearful when speaking about her condition and hospitalization. states she misses her family. Counseled patient on different medication options that will help her, patient agreeable to take medication. Patient agreeable to sign in voluntary and agrees with her need for treatment." Hospital course: Upon admission to the unit patient was directable and agreeable to commence treatment and signed adult voluntary form. Patient got along well with other patients on the unit and followed unit protocol. Patient was compliant with the medications and denied any side effects throughout hospital course. Patient was started on Lamictal and increased the dose to 100 mg daily for mood stabilization/depression, patient was counseled on the potential for a rash as a side effect and to follow staff if this did occur, she did not have any issues with this while on the unit. BuSpar increased her dose of 15 mg twice a day, Cymbalta 30 mg daily for mood/anxiety, doxepin 10 mg daily at bedtime for sleep/mood, Librium was started scheduled and gradually taper down for alcohol withdrawal. Patient was also on [facility] protocol with when necessary Ativan for alcohol withdrawal. Patient spoke of her stressors and engaged in therapy both group and individual. Patient was also seen by medical team for history and physical exam. Throughout the course of the hospitalization patient gradually improved with regards to mood, anxiety, sleep and became more future oriented with improved insight and judgment. On the day of discharge patient denied any suicidal or homicidal ideations intent or plan denied any auditory or visual hallucinations. Patient endorsed wanting to live for her kids and her future. The patient denied any access to guns or weapons. Patient denied any paranoia and did not endorse any delusions. Patient does have a significant history of substance abuse and was counseled on abstaining from all substances including alcohol and marijuana. Patient was offered however declined inpatient substance- abuse rehab. Patient elected to do outpatient substance use treatment program through [facility]. Patient was also counseled on the medications and need for regular compliance and was encouraged to follow-up with their outpatient appointment for mental health and also for primary care. Prior to discharge a family meeting will be arranged by clinical social work therapist to answer any questions and ensure safety upon discharge. Mental status exam: General Appearance: Patient appears to be stated age is alert, pleasant, and cooperative. Patient is in no acute distress and has improved hygiene and grooming Behavior: Patient is calmly seated without any agitated behavior. Speech: Patient's speech is fluent and nonpressured. Mood/Affect: Patient reports their mood is "better", affect is congruent and euthymic. Suicidality/Homicidality: Patient denies having any suicidal or homicidal ideation intent or plan. Perceptions: Patient denies any auditory or visual hallucinations. Though content/process: There is no evidence of any delusional thought content and thought process is linear and goal-directed. more future oriented Memory and concentration: AOX3, grossly intact for the purposes of this session. Can spell "WORLD" backwards correctly. Judgment and insight: improved with guarded prognosis Impression: Bipolar disorder, current episode depressed Alcohol use disorder Nicotine dependence Marital problems Plan: -Continue with discharge today as patient has improved and stabilized psychiatrically and is not currently an imminent threat to herself and/or others. Patient will remain at chronically elevated risk for harm to self and/or others due to her impulsivity and substance abuse. -Continue medications: Lamictal 100 mg daily for mood stabilization/depression, BuSpar 15 mg twice a day for anxiety, Cymbalta 30 mg daily for mood/anxiety, doxepin 10 mg daily at bedtime for sleep/mood, Librium was discontinued. patient declined anti cravings meds for etoh. -Patient was counseled on the need for medication compliance and appropriate follow-up at mental health and also primary care for medical issues. Patient verbalized understanding and agreed. -Social work to arrange for and conduct family meeting to ensure safety upon discharge and answer any questions/concerns. Social work also to arrange for patients follow up appointments with [facility] for psychiatric care along with follow up with primary care provider. -Patient counseled on abstaining from recreational drugs and marijuana and alcohol. Was informed/educated on the adverse effects on their physical and mental health. Patient verbally agreed and understood. Patient was offered substance abuse treatment however declined at this time. -Patient was instructed to return to the hospital or seek immediate medical care if their psychiatric or medical symptoms do worsen or reoccur. Allergies Allergy/AdvReac Type Severity Reaction Status Date / Time No Known Allergies Allergy Verified 04/12/23 17:[address] Glu mg/dL 114 mg/dL 04/13/23 06:29 Hemoglobin A1c 5.6 % (<=6.0) 04/13/23 06:29 Triglycerides 76.80 mg/dL (0.00-149.00) 04/13/23 06:29 Cholesterol 182.00 mg/dL (0.00-200.00) 04/13/23 06:29 LDL Cholesterol, Calc 102.4 mg/dL (0.0-131.0) 04/13/23 06:29 VLDL Cholesterol, Calc 15.36 mg/dL (5.00-40.00) 04/13/23 06:29 HDL Cholesterol 64.20 mg/dL (40.00-60.00) H 04/13/23 06:29 Cholesterol/HDL Ratio 2.83 Ratio 04/13/23 06:29 TSH 2.330 mIU/L (0.465-4.680) 04/13/23 06:29 SARS-CoV-2 (PCR) Not Detected (Not Detectd) 04/15/23 22:30 Vital Signs Temp 97.3 F L 04/17/23 05:18 Pulse 81 04/17/23 05:18 Resp 13 04/17/23 05:18 BP 114/60 04/17/23 05:18 Pulse Ox 98 04/12/23 18:44 FiO2 Patient Condition at Discharge: Stable Plan - Discharge Summary Discharge Rx Participant: No New Discharge Prescriptions: New DULoxetine HCL [Cymbalta] 30 mg PO DAILY 30 Days #30 cap Thiamine [Vitamin B-1] 100 mg PO DAILY tab busPIRone HCL [Buspar] 15 mg PO BID 30 Days #120 tablet lamoTRIgine [LaMICtal] 100 mg PO HS 30 Days #30 tab Doxepin [SINEquan] 10 mg PO HS 30 Days #30 cap Discharge Medication List DULoxetine HCL [Cymbalta] 30 mg PO DAILY 30 Days #30 cap 04/17/23 [Rx] Doxepin [SINEquan] 10 mg PO HS 30 Days #30 cap 04/17/23 [Rx] Thiamine [Vitamin B-1] 100 mg PO DAILY tab 04/17/23 [Rx] busPIRone HCL [Buspar] 15 mg PO BID 30 Days #120 tablet 04/17/23 [Rx] lamoTRIgine [LaMICtal] 100 mg PO HS 30 Days #30 tab 04/17/23 [Rx] Activity/Diet/Wound Care/Special Instructions: Avoid the use of street drugs and alcohol. Take all medications as prescribed. When you are in need of refills on your medications, please contact your medical provider and/or outpatient psychiatrist/provider to have this done. Please go to your scheduled outpatient appointment for aftercare treatment. If symptoms return or become worse, call the crisis line at and/or go to the nearest emergency room for evaluation. National Suicide Hotline 988. Discharge Disposition: HOME SELF-CARE
== END 2023-04-17 13:56 | disposition home or self-care (01) | DRG 885 ==
LOC: 3MHU 17:31
PROVIDERS: ADMIT Psychiatry & Neurology Psychiatry; ATTEND Psychiatry & Neurology Psychiatry
DX: F31.30 Bipolar disorder, current episode depressed, mild or moderate severity, unspecified (principal); F10.139 Alcohol abuse with withdrawal, unspecified; Z23 Encounter for immunization; Z11.52 Encounter for screening for COVID-19; F41.9 Anxiety disorder, unspecified; R00.0 Tachycardia, unspecified; T43.596A Underdosing of other antipsychotics and neuroleptics, initial encounter; T43.506A Underdosing of unspecified antipsychotics and neuroleptics, initial encounter; Z91.128 Patient's intentional underdosing of medication regimen for other reason; R74.01 Elevation of levels of liver transaminase levels; F17.210 Nicotine dependence, cigarettes, uncomplicated; Z71.6 Tobacco abuse counseling; Z79.899 Other long term (current) drug therapy; Z63.0 Problems in relationship with spouse or partner; Z91.52 Personal history of nonsuicidal self-harm; Z71.41 Alcohol abuse counseling and surveillance of alcoholic; Z71.51 Drug abuse counseling and surveillance of drug abuser
CPT/HCPCS: 80061; 83036; 84443; 87635; 90677; 90686